=== PATIENT | male | born 1995 | race Caucasian/White ===

== ENCOUNTER 2020-06-07 15:31 | Emergency (ER) | payer OTHER ==
--- NOTE | 2020-06-07 16:02 | RAD ---
Exam: Right hand 3 views: HISTORY: Pain following an injury COMPARISON: None FINDINGS: Volarly angulated foreshortened boxer type fracture distal fifth metacarpal IMPRESSION: Boxer type fracture distal fifth metacarpal with volar angulation and foreshortening.
== END 2020-06-07 16:51 | disposition home or self-care (01) ==
LOC: ERS 15:31
DX: S62.337A Displaced fracture of neck of fifth metacarpal bone, left hand, initial encounter for closed fracture (principal); W22.8XXA Striking against or struck by other objects, initial encounter
CPT/HCPCS: 29125

== ENCOUNTER 2020-08-05 18:21 | Observation (INO) | payer OTHER, SELFPAY ==
[~2020-08-05 18:21] MED LIST: Iopamidol-370 76% 500 ML 1 ML ONE
[2020-08-05] MEDS ORDERED: Metoclopramide HCl 10 MG/2 ML VIAL ONE (18:27)
[2020-08-05 19:04] LABS: Hemoglobin 14.9 g/dL (14.0-18.0); Mean Corpuscular HGB CONC 33.1 g/dL (32.0-36.0); Mean Corpuscular Hemoglobin 29.9 pg (27.0-31.0); Mean Corpuscular Volume 90.4 fL (78.0-98.0); Mean Platelet Volume 7.6 fL (7.4-10.4); Platelet Count 254 thou/uL (130-400); RBC Distribution Width 11.9 % (11.5-14.5); Red Blood Cell (RBC) Count 4.99 mill/uL (4.70-6.10); White Blood Cell (WBC) Count 21.1 thou/uL (4.8-10.8)
[2020-08-05 19:24] LABS: Band 43 % (5-11); Eosinophils 1 % (0-10); Lymphocytes 1 % (21-51); MDiff Complete? YES; Monocytes 3 % (0-10); Neutrophil 51 % (42-75); Platelet Morphology Comment Appears Adequate; RBC Morphology Normal; Reactive Lymphocytes 1 % (0-10); Reflex for Review?? NO
[2020-08-05 19:26] LABS: ALT (SGPT) 14 U/L (8-55); AST (SGOT) 22 U/L (5-34); Albumin 4.1 g/dL (3.5-5.0); Alkaline Phosphatase 116 U/L (40-110); Anion Gap 12 mmol/L (10-20); BUN (Urea Nitrogen) 12 mg/dL (8.9-20.6); Bilirubin, Total 0.9 mg/dL (0.2-1.2); Calc. Creatinine Clearance 0 mL/min (70-130); Calcium 8.4 mg/dL (7.8-10.44); Carbon Dioxide 25 mmol/L (22-29); Chloride 108 mmol/L (98-107); Glucose 95 mg/dL (70-105); Lipase 30 U/L (8-78); Potassium 4.2 mmol/L (3.5-5.1); Protein, Total 7.1 g/dL (6.0-8.3); Sodium 141 mmol/L (136-145)
[2020-08-05] MEDS ORDERED: Morphine 4 MG/ML VIAL ONE (20:24)
[2020-08-05] MEDS ORDERED: Calcium Carbonate 500 MG ChewTAB PO PRN (21:54)
[2020-08-05] MEDS ORDERED: Acetaminophen 325 MG TAB PO PRN (21:54)
[2020-08-05] MEDS ORDERED: Ibuprofen 800 MG TAB PO PRN (22:00)
[2020-08-05] MEDS ORDERED: Piperacillin/Tazobactam 4.5 GM VIAL ONE (22:17)
[2020-08-05 23:02] LABS: Bilirubin Negative (Negative); Blood, Urine Negative (Negative); Clarity Clear (Clear); Glucose, Urine (Dipstick) Normal (Negative); Ketone, Urine Negative (Negative); Leukocyte Negative Leu/uL (Negative); Nitrite Negative (Negative); Protein, Urine (Dipstick) Negative (Neg-Trace); Specific Gravity, Urine 1.015 (1.002-1.036); Urobilinogen Normal mg/dL (Less than 2)
[2020-08-05] MEDS: Ondansetron PF 4 MG/2 ML Vial IVP SCH (23:50)
[2020-08-05] MEDS: Lactated Ringer's 1,000 ML IV SCH (23:52)
[2020-08-06] VITALS: BMI 17.4
[2020-08-06 05:15] LABS: SARS-CoV-2 PCR by NAA Not Detected (NotDetected)
[2020-08-06 05:28] LABS: #Lymphocytes 0.7 thou/uL (1.20-3.40); #Monocytes 0.7 thou/uL (0.11-0.59); #Neutrophils 12.6 thou/uL (1.40-6.50); %Eosinophils 0.1 % (0.0-10.0); %Lymphocytes 5.3 % (21.0-51.0); %Monocytes 4.9 % (0.0-10.0); %Neutrophils 89.8 % (42.0-75.0); Hemoglobin 13.6 g/dL (14.0-18.0); Mean Corpuscular HGB CONC 33.8 g/dL (32.0-36.0); Mean Corpuscular Hemoglobin 30.5 pg (27.0-31.0); Mean Corpuscular Volume 90.4 fL (78.0-98.0); Mean Platelet Volume 7.8 fL (7.4-10.4); Platelet Count 215 thou/uL (130-400); RBC Distribution Width 11.9 % (11.5-14.5); Red Blood Cell (RBC) Count 4.45 mill/uL (4.70-6.10)
[2020-08-06] MEDS: Ondansetron PF 4 MG/2 ML Vial IVP SCH (05:32)
[2020-08-06 05:45] LABS: Anion Gap 10 mmol/L (10-20); BUN (Urea Nitrogen) 14 mg/dL (8.9-20.6); Calc. Creatinine Clearance 116 mL/min (70-130); Calcium 7.9 mg/dL (7.8-10.44); Carbon Dioxide 24 mmol/L (22-29); Chloride 106 mmol/L (98-107); Glucose 106 mg/dL (70-105); Potassium 3.8 mmol/L (3.5-5.1); Sodium 136 mmol/L (136-145)
[2020-08-06] MEDS: Lactated Ringer's 1,000 ML IV SCH ×2 (08:42→19:00)
[2020-08-06] MEDS ORDERED: Ondansetron PF 4 MG/2 ML Vial IVP PRN (08:43)
[2020-08-06] MEDS: Dicyclomine 10 MG/5 ML PO SCH ×4 (08:43→19:43)
[2020-08-06 09:53] LABS: Magnesium 1.4 mg/dL (1.6-2.6); Phosphorus 4.2 mg/dL (2.3-4.7)
[2020-08-06] MEDS ORDERED: Azithromycin 250 MG TAB PO SCH (11:30)
[2020-08-06] MEDS ORDERED: Magnesium 2 GM/50 ML 2 GM in Premix Bag 1 BAG IVPB SCH (11:45)
[2020-08-06 13:52] LABS: Amphetamine Not Detected (NotDetected); Barbiturates Screen Not Detected (NotDetected); Benzodiazepine Screen Not Detected (NotDetected); Cocaine Metabolite Screen Not Detected (NotDetected); Medtox Control Line Valid? VALID (VALID); Medtox Reader # READER 1; Methadone Not Detected (NotDetected); Methamphetamine Not Detected (NotDetected); Opiate Screen Detected (NotDetected); Oxycodone Screen Not Detected (NotDetected); Phencyclidine (PCP) Not Detected (NotDetected); THC/Cannabinoid Screen Not Detected (NotDetected); Tricyclic Screen Not Detected (NotDetected)
[2020-08-07] MEDS: Lactated Ringer's 1,000 ML IV SCH ×2 (04:01→14:33)
[2020-08-07] MEDS: Dicyclomine 10 MG/5 ML PO SCH ×2 (08:58→12:35)
[2020-08-07] MEDS ORDERED: Azithromycin 250 MG TAB PO SCH (09:00)
[2020-08-07 09:03] LABS: ALT (SGPT) 10 U/L (8-55); AST (SGOT) 16 U/L (5-34); Albumin 3.3 g/dL (3.5-5.0); Alkaline Phosphatase 79 U/L (40-110); Anion Gap 9 mmol/L (10-20); BUN (Urea Nitrogen) 11 mg/dL (8.9-20.6); Calc. Creatinine Clearance 120 mL/min (70-130); Calcium 8.1 mg/dL (7.8-10.44); Carbon Dioxide 24 mmol/L (22-29); Chloride 107 mmol/L (98-107); Globulin 2.2 g/dL (2.4-3.5); Glucose 82 mg/dL (70-105); Magnesium 1.8 mg/dL (1.6-2.6); Phosphorus 2.5 mg/dL (2.3-4.7); Potassium 4.2 mmol/L (3.5-5.1); Protein, Total 5.5 g/dL (6.0-8.3); Sodium 136 mmol/L (136-145)
[2020-08-07 15:16] VITALS: BP 100/59; TEMP 98.3
== END 2020-08-07 15:10 | disposition home or self-care (01) ==
LOC: ERS 18:21 → T4-A 21:27
PROVIDERS: ADMIT Student in an Organized Health Care Education/Training Program; ATTEND Student in an Organized Health Care Education/Training Program
DX: A41.89 Other specified sepsis (principal); A08.4 Viral intestinal infection, unspecified; R55 Syncope and collapse; E86.0 Dehydration; G40.909 Epilepsy, unspecified, not intractable, without status epilepticus; Z20.822 Contact with and (suspected) exposure to COVID-19
CPT/HCPCS: 36415; 74177; 80048; 80053; 80306; 81003; 83605; 83630; 83690; 83735; 84100; 84145; 84146; 84439; 84443; 84484; 85025; 87040; 87045; 87046; 87081; 87324; 87328; 87329; 87427; 87449; 87635; 93005; 96365; 96367; 96375; 96376; G0378; J2270; J2405; J2543; J2765; J3475; Q9967; U0003; U0005